=== PATIENT | female | born 1950 | race Caucasian/White ===

== ENCOUNTER 2016-08-04 13:14 | Outpatient (CLI) | payer MEDICARE | END 2016-08-04 16:36 | LOC: D.MAMMO 13:14 | DX: Z12.31 Encounter for screening mammogram for malignant neoplasm of breast (principal) ==

== ENCOUNTER → 2016-09-27 16:06 | Outpatient (CLI) | payer MEDICARE | END | disposition home or self-care (01) | LOC: D.MAMMO 09:30 | DX: R92.8 Other abnormal and inconclusive findings on diagnostic imaging of breast (principal) ==

== ENCOUNTER → 2016-10-12 08:56 | Outpatient (CLI) | payer MEDICARE | END | disposition home or self-care (01) | LOC: D.US 08:56 | DX: N63 Unspecified lump in breast (principal) ==

== ENCOUNTER → 2016-11-03 16:35 | Outpatient (CLI) | payer MEDICARE | END | disposition home or self-care (01) | LOC: D.MAMMO 13:00 | DX: R92.0 Mammographic microcalcification found on diagnostic imaging of breast (principal) ==